=== PATIENT | male | born 1970 | race Hispanic/Latino ===

== ENCOUNTER 2018-02-24 14:45 | Emergency (ER) | payer OTHER ==
[~2018-02-24] VITALS: Ht 175.3 cm; Wt 81.8 kg
[2018-02-24] MEDS ORDERED: LISINOPRIL5 MG PO (14:57)
[2018-02-24] MEDS ORDERED: LISINOP/HCTZ1 TA1 PO (15:21)
[2018-02-24] MEDS ORDERED: KEFLEX500 M1 PO (15:49)
[2018-02-24 15:55] VITALS: BP 136/84
== END 2018-02-24 15:55 | disposition home or self-care (01) | DRG 605 ==
LOC: ED 14:45
PROC: 0HQ0XZZ Repair Scalp Skin, External Approach (ICD-10-PCS; principal; 2018-02-24)
DX: S01.01XA Laceration without foreign body of scalp, initial encounter (principal); I10 Essential (primary) hypertension; V49.40XA Driver injured in collision with unspecified motor vehicles in traffic accident, initial encounter

== ENCOUNTER 2018-07-15 13:13 | Emergency (ER) | payer OTHER ==
[~2018-07-15] VITALS: Ht 175.3 cm; Wt 62.0 kg
[~2018-07-15 13:13] MED LIST: KEFLEX500 M1 PO; LISINOP/HCTZ1 TA1 PO; LISINOPRIL5 MG PO
[2018-07-15 13:21] VITALS: BP 138/98
[2018-07-15] MEDS ORDERED: LORTAB 7.57.5 MG PO (13:26)
[2018-07-15] MEDS ORDERED: LORTAB 1010 MG PO (13:34)
== END 2018-07-15 13:43 | disposition home or self-care (01) | DRG 948 ==
LOC: ED 13:13
DX: G89.18 Other acute postprocedural pain (principal); R07.0 Pain in throat; I10 Essential (primary) hypertension

== ENCOUNTER 2021-06-17 09:03 | Day surgery (SDC) | payer OTHER ==
[~2021-06-17] VITALS: Ht 177.8 cm; Wt 85.7 kg
[~2021-06-17 09:03] MED LIST changes: +ASPIRIN81 MG PO; +FISH OIL1000 MG PO; +LORTAB 1010 MG PO; +LORTAB 7.57.5 MG PO; +MULTIVITAMIN1 TA1 PO; +ODORLESS GARL PO
[2021-06-17 13:06] VITALS: BP 115/79
== END 2021-06-17 12:56 | disposition home or self-care (01) | DRG 395 ==
LOC: ENDO 09:03 → ORM 12:45 → ENDO 12:56
PROVIDERS: ATTEND Surgery
PROC: 0DJD8ZZ Inspection of Lower Intestinal Tract, Via Natural or Artificial Opening Endoscopic (ICD-10-PCS; principal; 2021-06-17)
DX: K64.5 Perianal venous thrombosis (principal); I10 Essential (primary) hypertension; E78.5 Hyperlipidemia, unspecified; F32.A Depression, unspecified